=== PATIENT | female | born 1960 | race Caucasian/White ===

== ENCOUNTER 2017-02-08 01:39 | Observation (INO) | payer OTHER ==
[~2017-02-08] VITALS: Ht 162.6 cm; Wt 96.3 kg
[2017-02-08 02:10] LABS: BASO % 0.6 %; BASO ABS # 0.02 K/uL (0-0.2); COMPLETE YES; EOS % 3.9 %; HEMATOCRIT 30.4 % (37-47); IG% 0.6 %; LYMPH % 21.3 %; LYMPH ABS # 0.77 K/uL (1.2-3.4); MEAN CELL VOLUME 87.9 fL (80-100); MEAN CORPUSCULAR HEMOGLOBIN 29.8 pg (25-34); MEAN CORPUSCULAR HGB CONC 33.9 g/dl (32-36); MEAN PLATELET VOLUME 9.6 fL (7.4-10.4); MONO % 9.1 %; NEUT % 64.5 %; PLATELET COUNT 235 K/uL (130-400); RED BLOOD COUNT 3.46 M/uL (4.2-5.4); WHITE BLOOD COUNT 3.62 K/uL (4.8-10.8)
[2017-02-08 02:18] LABS: PROTHROMBIN TIME (PATIENT) 10.8 SECONDS (9.0-12.0)
--- NOTE | 2017-02-08 02:19 | EMERGENCY ROOM VISIT NOTE ---
History Report prepared by Agatha: [place] Under the Supervision of: Dr. Marely Castellanos D.O. First contact with patient: 01:42 Chief Complaint: CARDIAC ASSESSMENT Stated Complaint: CARDIAC SYMPTOMS History of Present Illness The patient is a 56 year old female who presents to the Emergency Room via EMS with complaints of persistent heart racing that started today. The patient was having some indigestion earlier in the day and started noticing her heart was racing. She has history of a pacemaker and atrial fibrillation. Seven hours ago , the patient noted that her heart rate was high so she took a Cardizem which helped relieve her symptoms. The patient states that she could feel that she was in a-fib. Over an hour ago, the patient felt her heart racing significantly again and her heart rate was above 100. She also complains of a tightness in her left shoulder and discomfort that radiated down to her left elbow. The patient called EMS and on her way to the ED she went back into sinus rhythm after being a-fib. The patient also notes that her feet had been swelling earlier in the day. She states that she has been taking her medications regularly. She was recently discharged from [facility] for a GI bleed 5 days ago. She denies chest pain or discomfort with her episodes today. Source of History: patient, EMS Onset: today Position: chest Timing: other (persistent) Associated Symptoms: No chest pain Note: Other associated symptoms: indigestion, elevated heart rate, left arm pain, feet swelling Review of Systems See HPI for pertinent positives & negatives. A total of 10 systems reviewed and were otherwise negative. Past Medical & Surgical Medical Problems: (1) Bleeding (2) Cervical cancer (3) Gallbladder problem (4) Heart disease (5) Hypertension (6) ICD (implantable cardioverter-defibrillator) in place Family History FH: cancer FH: gallbladder disease FH: hypertension Heart disease Social History Drug Use: none Housing Status: lives with family Occupation Status: employed Current/Historical Medications Scheduled Digoxin (Digoxin), 0.125 MG PO DAILY Diltiazem Hcl Ext Rel (Tiazac), 180 MG PO BID Sotalol Hcl (Betapace), 120 MG PO BID Scheduled PRN Diltiazem Hcl (Cardizem), 60 MG PO PRN PRN for TACHYCARDIA Oxycodone Ir (Roxicodone Ir), 5 MG PO Q6H PRN for Pain Trimethobenzamide Hcl (Tigan), 300 MG PO Q6H PRN for Nausea Allergies Coded Allergies: Valacyclovir (Verified Allergy, Intermediate, severe rash, 02/08/17) Uncoded Allergies: ASCORBIC ACID (Allergy, Intermediate, HIVES, 02/08/17) STRAWBERRIES,TOMATOES (Allergy, Intermediate, HIVES, 02/08/17) Physical Exam Vital Signs Date Time Temp Pulse Resp B/P Pulse Ox O2 Delivery O2 Flow Rate FiO2 02/08/17 06:08 60 02/08/17 04:39 68 16 132/74 94 Room Air 02/08/17 03:14 61 18 131/76 97 Room Air 02/08/17 02:31 62 20 116/67 96 Room Air 02/08/17 02:00 64 02/08/17 01:52 36.9 70 20 134/77 96 Room Air Physical Exam HEENT: Head - normocephalic and atraumatic Pupils are equal, round, and reactive to light. Extraocular eye muscles are intact, and sclera are anicteric. Nose - moist nasal mucosa without discharge. Mouth - moist buccal mucosa. Oropharynx is nonerythematous and there is no tonsillar exudate or edema noted. Neck: Supple; no JVD, nuchal rigidity, cervical lymphadenopathy. Heart: Regular rate and rhythm. There is a normal S1 and S2 with no murmurs, clicks, or gallops appreciated. Lungs: Clear to auscultation bilaterally with no wheezes, rales, or rhonchi. Abdomen: Soft, completely nontender, nondistended, with good bowel sounds. There are no palpable pulsatile masses or hepatosplenomegaly. There is no guarding, rigidity, or rebound noted. Extremities: 1+ edema in ankles. There are easily palpable peripheral pulses. Skin: warm and dry with good turgor and no rashes. Medical Decision & Procedures ER Provider Diagnostic Interpretation: Chest X-ray interpreted by me: Pacemaker in place, borderline cardiomegaly, no obvious pulmonary pathology. Laboratory Results 02/08/17 01:05 Red Blood Count 3.46, Mean Corpuscular Volume 87.9, Mean Corpuscular Hemoglobin 29.8, Mean Corpuscular Hemoglobin Concent 33.9, Mean Platelet Volume 9.6, Neutrophils (%) (Auto) 64.5, Lymphocytes (%) (Auto) 21.3, Monocytes (%) (Auto) 9.1, Eosinophils (%) (Auto) 3.9, Basophils (%) (Auto) 0.6, Neutrophils # (Auto) 2.34, Lymphocytes # (Auto) 0.77, Monocytes # (Auto) 0.33, Eosinophils # (Auto) 0.14, Basophils # (Auto) 0.02 02/08/17 01:05 Test 02/08/17 01:05 White Blood Count 3.62 K/uL (4.8-10.8) Red Blood Count 3.46 M/uL (4.2-5.4) Hemoglobin 10.3 g/dL (12.0-16.0) Hematocrit 30.4 % (37-47) Mean Corpuscular Volume 87.9 fL (80-100) Mean Corpuscular Hemoglobin 29.8 pg (25-34) Mean Corpuscular Hemoglobin Concent 33.9 g/dl (32-36) Platelet Count 235 K/uL (130-400) Mean Platelet Volume 9.6 fL (7.4-10.4) Neutrophils (%) (Auto) 64.5 % Lymphocytes (%) (Auto) 21.3 % Monocytes (%) (Auto) 9.1 % Eosinophils (%) (Auto) 3.9 % Basophils (%) (Auto) 0.6 % Neutrophils # (Auto) 2.34 K/uL (1.4-6.5) Lymphocytes # (Auto) 0.77 K/uL (1.2-3.4) Monocytes # (Auto) 0.33 K/uL (0.11-0.59) Eosinophils # (Auto) 0.14 K/uL (0-0.5) Basophils # (Auto) 0.02 K/uL (0-0.2) RDW Standard Deviation 44.6 fL (36.4-46.3) RDW Coefficient of Variation 16.3 % (11.5-14.5) Immature Granulocyte % (Auto) 0.6 % Immature Granulocyte # (Auto) 0.02 K/uL (0.00-0.02) Prothrombin Time 10.8 SECONDS (9.0-12.0) Prothromb Time International Ratio 1.0 (0.9-1.1) Activated Partial Thromboplast Time 25.5 SECONDS (21.0-31.0) Partial Thromboplastin Ratio 1.0 Anion Gap 10.0 mmol/L (3-11) Estimated GFR () 114.5 Estimated GFR (Non- 98.8 BUN/Creatinine Ratio 15.5 (10-20) Calcium Level 8.7 mg/dl (8.5-10.1) Total Creatine Kinase 70 U/L (26-192) Creatine Kinase MB 1.0 ng/ml (0.5-3.6) Creatine Kinase MB Ratio 1.4 (0-3.0) Troponin I 0.088 ng/ml (0-0.045) Pro-B-Type Natriuretic Peptide 585 pg/ml (0-900) Thyroid Stimulating Hormone (TSH) 1.550 uIu/ml (0.300-4.500) Laboratory results per my review. ECG Indication: tachycardia Rate (beats per minute): 68 Rhythm: normal sinus Findings: no acute ischemic change, no ectopy ED Course 0150: Past medical records reviewed. The patient was evaluated in room A10. A complete history and physical exam was performed. A twelve-lead EKG was obtained as described above. The patient had a chest x-ray as described above. Laboratory studies were drawn as above. 0230: At this time, I reevaluated the patient and she was resting. We were able to obtain the discharge summary from [facility]. 0308: At this time, I discussed the patient's case with Dr. Munoz - Hospitalist Karan and he agreed to accept the patient for further evaluation. Medical Decision The patient is a 56 year old female who presents to the ED with atrial fibrillation. Differential diagnosis includes a-fib with rvr, CHF, cardiac ischemia, electrolyte abnormality or thyroid dysfunction. Labs reviewed by me: white count 3.6, hemoglobin 10.3, normal renal function, normal TSH, glucose 130, BNP 585, troponin 0.088, coags normal. The patient noted some heart racing earlier in the day. She took some extra diltiazem. EMS found the patient was in A. fib with RVR. Her blood pressure was stable and she had no shortness of breath or chest discomfort. The A. fib broke in ambulance on the way here to the emergency department. However, the patient has an elevated troponin. I reviewed the results of the labs with the patient. I will not start her on blood thinners as she had a recent admission to [facility] for GI bleeding. Consults Time Called: [phone] Consulting Physician: Dr. Munoz - Hospitalist Karan Returned Call: [phone] At this time, I discussed the patient's case with Dr. Munoz and he agreed to accept the patient for further evaluation. Impression Primary Impression: Atrial fibrillation with rapid ventricular response Additional Impression: Elevated troponin Scribe Attestation The scribe's documentation has been prepared under my direction and personally reviewed by me in its entirety. I confirm that the note above accurately reflects all work, treatment, procedures, and medical decision making performed by me. Departure Information Dispostion Being Evaluated By Hospitalist Referrals No Doctor, Assigned (PCP) Problem Qualifiers
[2017-02-08] MEDS ORDERED: DILT-113 PO (02:28)
[2017-02-08] MEDS ORDERED: SOTA120T16 PO (02:28)
[2017-02-08] MEDS ORDERED: LNX125 PO (02:30)
[2017-02-08] MEDS ORDERED: OXYC1TAB3 PO (02:30)
[2017-02-08 02:33] LABS: BLOOD UREA NITROGEN 10 mg/dl (7-18); BUN/CREATININE RATIO 15.5 (10-20); CALCIUM 8.7 mg/dl (8.5-10.1); CARBON DIOXIDE 29 mmol/L (21-32); CHLORIDE 101 mmol/L (98-107); CREATININE 0.66 mg/dl (0.60-1.20); GLUCOSE 130 mg/dl (70-99); POTASSIUM 3.4 mmol/L (3.5-5.1); SODIUM 140 mmol/L (136-145)
[2017-02-08] MEDS ORDERED: DILT40TA PO (02:33)
[2017-02-08] MEDS ORDERED: TRIM300C14 PO (02:35)
[2017-02-08 02:49] LABS: CKMB/CK RATIO 1.4 (0-3.0)
[2017-02-08] MEDS ORDERED: POTASSIUM CHLORIDE 10 MEQ TABCR PO STA (06:16)
[2017-02-08] MEDS ORDERED: IV FLUIDS COMPLETED PRN (06:30)
[2017-02-08] MEDS ORDERED: OXYCODONE HCL IR 5 MG TAB (IMMEDIATE RELEASE) PO PRN (06:30)
[2017-02-08] MEDS ORDERED: TRIMETHOBENZAMIDE HCL 300 MG PO PRN (06:30)
[2017-02-08] MEDS ORDERED: ACETAMINOPHEN 325 MG TAB PO PRN (06:30)
--- NOTE | 2017-02-08 06:38 | History and Physical ---
History & Physical Date & Time of Service: February 08, 2017 at 06:23 Chief Complaint: Cardiac Symptoms Primary Care Physician: No Doctor, Assigned History of Present Illness Source: patient, hospital records 56 year old female, visiting from [facility], with history of hypertrophic cardiomyopathy, s/p Cardiac Arrest, s/p Pacemaker Placement, Atrial Fibrillation off coumadin, SVT, Severe Mitral Regurgitation, HTN, Lower GI bleeding, Cervical CA on chemo presenting with palpitations. Follows with [facility] for Cardiology and Oncology. Patient was admitted earlier this month to [facility] for SVT. Apparently, Sotalol was added to her medication regimen. A few days later, she was readmitted for rectal bleeding. Colonoscopy showed "an ulcer". She is currently visiting her daughter in the area. At around midnight, patient walked back to bed after going to the bathroom and developed palpitations. No chest pain, dizziness, nausea, diaphoresis. She then took her PRN Cardizem which did not relieve her symptoms. EMS was then summoned. Upon arrival to the ER, patient was already in normal sinus rhythm HR 68. On my exam, she is resting in bed, comfortable. Denies active chest pain, palpitations, dyspnea, dizziness. She reports lower leg swelling but no tenderness. No other symptoms Past Medical/Surgical History Medical Problems: (1) Bleeding Status: Chronic (2) Cervical cancer Status: Resolved (3) Gallbladder problem Status: Chronic (4) Heart disease Status: Chronic (5) Hypertension Status: Chronic (6) ICD (implantable cardioverter-defibrillator) in place Status: Chronic Family History FH: cancer FH: gallbladder disease FH: hypertension Heart disease Social History Smoking Status: Former Smoker Smokeless Tobacco Use: No Alcohol Use: none Drug Use: none Marital Status: Housing status: lives with family Occupational Status: employed Allergies Coded Allergies: Valacyclovir (Verified Allergy, Intermediate, severe rash, 02/08/17) Uncoded Allergies: ASCORBIC ACID (Allergy, Intermediate, HIVES, 02/08/17) STRAWBERRIES,TOMATOES (Allergy, Intermediate, HIVES, 02/08/17) Home Medications Scheduled Digoxin (Digoxin), 0.125 MG PO DAILY Diltiazem Hcl Ext Rel (Tiazac), 180 MG PO BID Sotalol Hcl (Betapace), 120 MG PO BID Scheduled PRN Diltiazem Hcl (Cardizem), 60 MG PO PRN PRN for TACHYCARDIA Oxycodone Ir (Roxicodone Ir), 5 MG PO Q6H PRN for Pain Trimethobenzamide Hcl (Tigan), 300 MG PO Q6H PRN for Nausea Review of Systems Constitutional- no fever; no weight loss Eyes- no acute visual changes ENT- no sinus drainage; no pharyngitis Pulmonary- no cough, no wheezing, no shortness of breath Cardiac- (+) as noted above GI- no nausea, no vomiting, no diarrhea, no melena, no hematochezia - no dysuria, no hematuria Musculoskeletal- no arthralgias, no myalgias Derm- no rashes, no new skin lesions, no changing skin lesions Hematologic- no unusual bruising, no unusual bleeding Lymphatics- no adenopathy Endocrine- no polyuria or polydipsia; no heat or cold intolerance Neuro- no headaches, no focal neurologic symptoms Psych- no anxiety, no depression Physical Exam Vital Signs Date Time Temp Pulse Resp B/P Pulse Ox O2 Delivery O2 Flow Rate FiO2 02/08/17 06:08 60 02/08/17 04:39 68 16 132/74 94 Room Air 02/08/17 03:14 61 18 131/76 97 Room Air 02/08/17 02:31 62 20 116/67 96 Room Air 02/08/17 02:00 64 02/08/17 01:52 36.9 70 20 134/77 96 Room Air General Appearance: WD/WN, no apparent distress Head: normocephalic, atraumatic Eyes: normal inspection, PERRL, EOMI ENT: normal ENT inspection, hearing grossly normal, pharynx normal Neck: supple, no adenopathy, thyroid normal, no JVD, trachea midline Respiratory/Chest: chest non-tender, lungs clear, normal breath sounds, no respiratory distress, no accessory muscle use Cardiovascular: regular rate, rhythm, no JVD, + systolic murmur (grade 3/6 apex ) Abdomen/GI: normal bowel sounds, non tender, soft, no organomegaly Back: normal inspection, no CVA tenderness Extremities/Musculoskelatal: no calf tenderness, normal range of motion, + pertinent finding (trace lower leg edema) 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, no motor/sensory deficits, alert, normal mood/affect, oriented x 3 Skin: normal color, warm/dry, no rash Lymphatic: no adenopathy Diagnostics Laboratory Results Results Past 24 Hours Test 02/08/17 01:05 02/08/17 06:16 Range/Units White Blood Count 3.62 4.8-10.8 K/uL Red Blood Count 3.46 4.2-5.4 M/uL Hemoglobin 10.3 12.0-16.0 g/dL Hematocrit 30.4 37-47 % Mean Corpuscular Volume 87.9 80-100 fL Mean Corpuscular Hemoglobin 29.8 25-34 pg Mean Corpuscular Hemoglobin Concent 33.9 32-36 g/dl Platelet Count 235 130-400 K/uL Mean Platelet Volume 9.6 7.4-10.4 fL Neutrophils (%) (Auto) 64.5 % Lymphocytes (%) (Auto) 21.3 % Monocytes (%) (Auto) 9.1 % Eosinophils (%) (Auto) 3.9 % Basophils (%) (Auto) 0.6 % Neutrophils # (Auto) 2.34 1.4-6.5 K/uL Lymphocytes # (Auto) 0.77 1.2-3.4 K/uL Monocytes # (Auto) 0.33 0.11-0.59 K/uL Eosinophils # (Auto) 0.14 0-0.5 K/uL Basophils # (Auto) 0.02 0-0.2 K/uL RDW Standard Deviation 44.6 36.4-46.3 fL RDW Coefficient of Variation 16.3 11.5-14.5 % Immature Granulocyte % (Auto) 0.6 % Immature Granulocyte # (Auto) 0.02 0.00-0.02 K/uL Prothrombin Time 10.8 9.0-12.0 SECONDS Prothromb Time International Ratio 1.0 0.9-1.1 Activated Partial Thromboplast Time 25.5 21.0-31.0 SECONDS Partial Thromboplastin Ratio 1.0 Sodium Level 140 136-145 mmol/L Potassium Level 3.4 3.5-5.1 mmol/L Chloride Level 101 98-107 mmol/L Carbon Dioxide Level 29 21-32 mmol/L Anion Gap 10.0 3-11 mmol/L Blood Urea Nitrogen 10 7-18 mg/dl Creatinine 0.66 0.60-1.20 mg/dl Estimated GFR () 114.5 Estimated GFR (Non- 98.8 BUN/Creatinine Ratio 15.5 10-20 Random Glucose 130 70-99 mg/dl Calcium Level 8.7 8.5-10.1 mg/dl Total Creatine Kinase 70 26-192 U/L Creatine Kinase MB 1.0 0.5-3.6 ng/ml Creatine Kinase MB Ratio 1.4 0-3.0 Troponin I 0.088 0-0.045 ng/ml Pro-B-Type Natriuretic Peptide 585 0-900 pg/ml Thyroid Stimulating Hormone (TSH) 1.550 0.300-4.500 uIu/ml Diagnostic Radiology cxr no infiltrates, no effusion, no congestion EKG HR 68, sinus rhythm, no signs of ischemia or infarct Impression Assessment and Plan 56 year old female, visiting from [facility], with history of hypertrophic cardiomyopathy, s/p Cardiac Arrest, s/p Pacemaker Placement, Atrial Fibrillation off coumadin, SVT, Severe Mitral Regurgitation, HTN, Lower GI bleeding, Cervical CA on chemo presenting with palpitations. PALPITATIONS HISTORY OF SVT, ATRIAL FIBRILLATION - was recently admitted to [facility] for SVT Sotalol added, will obtain records from [facility] - replace potassium - check echo, pacemaker interrogation cardiac markers - continue Sotalol 120mg BID, Digoxin 125mcg daily, Diltiazem 180mg BID - consult Escape Wheel Tooth Cutter HYPOKALEMIA replace with PO check Mg repeat K at 11am HISTORY OF HYPERTROPHIC CARDIOMYOPATHY S/P PACEMAKER PLACEMENT - (+) mild lower leg edema - check echo RECENT GI BLEED no recurrence per patient recent Colonoscopy revealed :an ulcer" will obtain records from recent admission at [facility] ongoing Chemo at [facility] DVT PROPHYLAXIS no anticoagulation due to recent GI bleed check Leg Doppler US before starting SCDs Full code per patient Disposition pending anticipate d/c home when medically stable ff up at [facility] for Cardiology and Oncology VTE Prophylaxis VTE Risk Assessment Done? Y/N: Yes Risk Level: Moderate
[2017-02-08 06:57] VITALS: BP 133/87; PULSE 63; TEMP 36.7; O2SAT 97; Ht 162.6 cm; Wt 96.3 kg
[2017-02-08 07:30] VITALS: BP 133/72; PULSE 66; TEMP 36.9; O2SAT 97
[2017-02-08 07:50] LABS: CKMB/CK RATIO 2.2 (0-3.0)
[2017-02-08] MEDS ORDERED: SOTALOL HCL 80 MG TAB PO SCH (09:00)
[2017-02-08] MEDS ORDERED: DILTIAZEM HCL (TIAzac) 180 MG CAPCR PO SCH (09:00)
--- NOTE | 2017-02-08 09:54 | DIAGNOSTIC IMAGING REPORT ---
CHEST ONE VIEW PORTABLE CLINICAL HISTORY: Atrial fibrillation. COMPARISON STUDY: No previous studies for comparison. FINDINGS: Lung volumes are normal. A left subclavian pacer/AICD is in place. There is moderate cardiomegaly without evidence of pulmonary edema. There is mild elevation of the left hemidiaphragm. There is no consolidation. IMPRESSION: 1. No acute cardiopulmonary findings. 2. Mild cardiomegaly without evidence of pulmonary edema. Electronically signed by: Curt Trevino M.D. 02/08/2017 9:53 AM Dictated Date/Time: 02/08/2017 9:52 AM
[2017-02-08 11:00] LABS: URINE APPEARANCE CLEAR (CLEAR); URINE BILIRUBIN NEG (NEG); URINE COLOR YELLOW; URINE NITRITE NEG (NEG); URINE PH 7.5 (4.5-7.5); URINE SPECIFIC GRAVITY 1.005 (1.000-1.030); UROBILINOGEN NEG (NEG)
[2017-02-08 11:05] LABS: MANUAL MICROSCOPIC REQUIRED? NO; REVIEW REQ? NO
[2017-02-08] MEDS: MAGNESIUM SULFATE 1GM / D5W 1 GM in PREMIXED IN D5W 100 ML IV SCH ×2 (11:11→12:10)
[2017-02-08 11:30] VITALS: BP 117/58; PULSE 60; TEMP 36.9; O2SAT 97
--- NOTE | 2017-02-08 11:55 | ECHOCARDIOGRAM REPORT ---
*NOTICE TO RECEIVING REPUBLICAN AGENCY This information is strictly Confidential and protected under [place] law. [place] law prohibits you from making any further disclosure of this information unless further disclosure is expressly permitted by the written consent of the person to whom it pertains or is authorized by law. A general authorization for the release of medical or other information is not sufficient for this purpose. Hospital accepts no responsibility if the information is made available to any other person, INCLUDING THE PATIENT. Interpretation Summary * Name: ZARIA OLSON Study Date: 02/08/2017 08:49 AM BP: 133/87 mmHg * Patient Location: [facility] HR: 69 * : 1960 (M/d/yyyy) Gender: Female Height: 64 in * Age: 56 yrs Ethnicity: CA Weight: 218 lb * Ordering Physician: Marco Munoz * Referring Physician: Dylan Ross * Performed By: Santhosh Jones RDCS * * Reason For Study: Palpitations * BSA: 2.0 m2 * -- Conclusions -- * The left ventricle is normal in size. * There is severe asymmetric left ventricular hypertrophy. * The echo findings are consistent with left ventricular outflow obstruction. * The left ventricular wall motion is normal. * Left ventricular systolic function is normal. * Ejection Fraction = 65-70%. * Diastolic dysfunction, Grade II (pseudonormalization pattern). * There is focal calification of the posterior mitral valve annulus * There is systolic anterior motion of the chordal apparatus. * There is moderate mitral valve prolapse. * There is mild to moderate mitral regurgitation. * The mitral regurgitant jet is eccentrically directed. * The left atrium is moderately dilated. Procedure Details * A complete two-dimensional transthoracic echocardiogram was performed (2D, M-mode, Doppler and color flow Doppler). * The study was technically adequate. Left Ventricle * The left ventricle is normal in size. * There is severe asymmetric left ventricular hypertrophy. * The echo findings are consistent with left ventricular outflow obstruction. * Left ventricular systolic function is normal. * Ejection Fraction = 65-70%. * The left ventricular wall motion is normal. Right Ventricle * The right ventricle is normal in size and function. * There is a pacemaker lead in the right ventricle. Atria * The left atrium is moderately dilated. * Right atrial size is normal. * No ASD detected; PFO is not assessed. Mitral Valve * There is systolic anterior motion of the chordal apparatus. * There is focal calification of the posterior mitral valve annulus * There is moderate mitral valve prolapse. * There is no mitral valve stenosis. * There is mild to moderate mitral regurgitation. * The mitral regurgitant jet is eccentrically directed. Tricuspid Valve * The tricuspid valve anatomy is normal. * There is no tricuspid stenosis. * There is trace tricuspid regurgitation. * Doppler findings do not suggest pulmonary hypertension. Aortic Valve * The aortic valve is trileaflet. * No hemodynamically significant valvular aortic stenosis. * No aortic regurgitation is present. Pulmonic Valve * The pulmonic valve is not well visualized. Great Vessels * The aortic root is normal size. Pericardium/Pleural * There is no pericardial effusion. Great Vessels * Normal inferior vena cava diameter and respiratory variation suggests normal central venous pressure. Left Ventricular Diastolic Function * Diastolic dysfunction, Grade II (pseudonormalization pattern). MMode 2D Measurements and Calculations IVSd 1.8 cm IVSs 2.4 cm LVIDd 4.4 cm LVIDs 2.2 cm LVPWd 1.5 cm LVPWs 2.3 cm IVS/LVPW 1.2 FS 51.4 % EDV(Teich) 89.0 ml ESV(Teich) 15.4 ml EF(Teich) 82.8 % EDV(cubed) 86.9 ml ESV(cubed) 10.0 ml EF(cubed) 88.5 % % IVS thick 33.6 % % LVPW thick 54.7 % LV mass(C)d 303.8 grams LV mass(C)dI 149.7 grams/m\S\2 LV mass(C)s 253.2 grams LV mass(C)sI 124.8 grams/m\S\2 SV(Teich) 73.7 ml SI(Teich) 36.3 ml/m\S\2 SV(cubed) 76.9 ml SI(cubed) 37.9 ml/m\S\2 EPSS 0.31 cm Ao root diam 3.3 cm Ao root area 8.6 cm\S\2 ACS 1.9 cm LA dimension 5.1 cm asc Aorta Diam 3.8 cm LA/Ao 1.5 LVOT diam 2.1 cm LVOT area 3.5 cm\S\2 LVAd ap4 34.5 cm\S\2 LVLd ap4 9.1 cm EDV(MOD-sp4) 108.0 ml LVAs ap4 14.8 cm\S\2 LVLs ap4 7.4 cm ESV(MOD-sp4) 25.0 ml EF(MOD-sp4) 76.9 % LVAd ap2 32.5 cm\S\2 LVLd ap2 9.0 cm EDV(MOD-sp2) 103.0 ml LVAs ap2 14.3 cm\S\2 LVLs ap2 7.2 cm ESV(MOD-sp2) 27.0 ml EF(MOD-sp2) 73.8 % SV(MOD-sp4) 83.0 ml SI(MOD-sp4) 40.9 ml/m\S\2 SV(MOD-sp2) 76.0 ml SI(MOD-sp2) 37.5 ml/m\S\2 Doppler Measurements and Calculations MV E max jenifer 125.5 cm/sec MV A max jenifer 92.6 cm/sec MV E/A 1.4 MV dec time 0.27 sec Ao V2 max 271.5 cm/sec Ao max PG 29.5 mmHg Ao max PG (full) 22.5 mmHg AMY(V,A) 1.7 cm\S\2 AMY(V,D) 1.7 cm\S\2 LV V1 max PG 7.0 mmHg LV V1 max 131.9 cm/sec MR max jenifer 686.0 cm/sec MR max PG 188.2 mmHg MR mean jenifer 422.0 cm/sec MR mean PG 89.0 mmHg MR VTI 190.0 cm PA V2 max 115.4 cm/sec PA max PG 5.3 mmHg PI end-d jenifer 124.1 cm/sec TR max jenifer 257.2 cm/sec
[2017-02-08] MEDS ORDERED: MCRK20 PO (13:14)
[2017-02-08] MEDS ORDERED: MGNO400 PO (13:14)
--- NOTE | 2017-02-08 13:17 | Discharge Instructions ---
Discharge Instructions Date of Service February 08, 2017. Admission Reason for Admission: Atrial Fibrillation With Rapid Ventricular Respons Discharge Discharge Diagnosis / Problem: palpitations, a fib with rvr Discharge Goals Goal(s): Decrease discomfort, Improve function Activity Recommendations Activity Limitations: resume your previous activity . Instructions / Follow-Up Instructions / Follow-Up FOLLOWUP WITH FAMILY DOCTOR IN ONE WEEK FOLLOWUP WITH CARDIOLOGY IN 1-2 WEEKS ADVICE TO RESTART COUMADIN. TO DISCUSS WITH CARDIOLOGY RISK OF STROKE IS HIGH. LAB: BMP WITH MG LEVELS IN 5-7 DAYS AND FOLLOW RESULTS WITH FAMILY DOCTOR. NEW MEDICATIONS: MAGNESIUM OXIDE 400MG PO ONCE DAILY POTASSIUM SUPPLEMENT 20MEQ PO ONCE DAILY. STOPPED MEDICATION: DIGOXIN. Current Hospital Diet Patient's current hospital diet: AHA Diet (Heart Healthy) Discharge Diet Recommended Diet: AHA Diet (Heart Healthy) Pending Studies Studies pending at discharge: no Medical Emergencies . Who to Call and When: Medical Emergencies: If at any time you feel your situation is an emergency, please call 911 immediately. . Non-Emergent Contact Non-Emergency issues call your: Primary Care Provider . . "Provider Documentation" section prepared by Jovi Grimaldo. . VTE Core Measure Inpt VTE Proph given/why not?: SCD's
[2017-02-08 13:40] VITALS: BP 117/58; PULSE 60; TEMP 36.9; O2SAT 97
[2017-02-08] MEDS ORDERED: DIGOXIN 0.125 MG TAB PO SCH (16:00)
--- NOTE | 2017-02-08 18:18 | Progress Note ---
Internal Med Progress Note Date of Service: February 08, 2017. Provider Documentation: SUBJECTIVE: resting comfortably no more palpitations no chest pain or sob afebrile no complaints OBJECTIVE: Vital Signs-as noted below Exam: General-alert and awake and oriented x 3. ENT-Normal hearing Neck-no neck masses Lungs-cta b/l no wheezing or crackles Heart-s1 and s2 heard regular rate and rhythm no murmurs Abdomen-soft bowel sounds present non tender no distension Extremities- no present no erythema Neuro-alert and awake oriented moves extremities Lab data as noted below. ASSESSMENT & PLAN: 56 year old female, visiting from [facility], with history of hypertrophic cardiomyopathy, s/p Cardiac Arrest, s/p Pacemaker Placement, Atrial Fibrillation off Coumadin, SVT, Severe Mitral Regurgitation, HTN, Lower GI bleeding, Cervical CA on chemo presenting with palpitations. PALPITATIONS HISTORY OF SVT, ATRIAL FIBRILLATION was recently admitted to [facility] for SVT Sotalol was added, hypokalemia and hypomagnesium-replaced. s/p pacemaker interrogation s/p echo seen by cardiology and recommends potassium and magnesium supplements and stopping digoxin and recommends to restart on coumadin which patinet is not agreabale but was ok to d/w with her wharf tender helper. HYPOKALEMIA and Hypomagnesemia replaced HISTORY OF HYPERTROPHIC CARDIOMYOPATHY S/P PACEMAKER PLACEMENT - (+) mild lower leg edema seen by cardiology RECENT GI BLEED no recurrence per patient recent Colonoscopy revealed :an ulcer" followup with pcp CERVICAL CANCER ongoing Chemo at [place] discharged home Vital Signs: Date Time Temp Pulse Resp B/P Pulse Ox O2 Delivery O2 Flow Rate FiO2 02/08/17 13:40 36.9 60 14 97 02/08/17 11:30 36.9 60 14 117/58 97 Room Air 02/08/17 11:30 Room Air 02/08/17 07:30 Room Air 02/08/17 07:30 36.9 66 18 133/72 97 Room Air 02/08/17 06:57 36.7 63 14 133/87 97 02/08/17 06:38 58 16 115/62 96 02/08/17 06:08 60 02/08/17 04:39 68 16 132/74 94 Room Air 02/08/17 03:14 61 18 131/76 97 Room Air 02/08/17 02:31 62 20 116/67 96 Room Air 02/08/17 02:00 64 02/08/17 01:52 36.9 70 20 134/77 96 Room Air Lab Results: Results Past 24 Hours Test 02/08/17 01:05 02/08/17 01:45 02/08/17 06:56 02/08/17 10:40 Range/Units White Blood Count 3.62 4.8-10.8 K/uL Red Blood Count 3.46 4.2-5.4 M/uL Hemoglobin 10.3 12.0-16.0 g/dL Hematocrit 30.4 37-47 % Mean Corpuscular Volume 87.9 80-100 fL Mean Corpuscular Hemoglobin 29.8 25-34 pg Mean Corpuscular Hemoglobin Concent 33.9 32-36 g/dl Platelet Count 235 130-400 K/uL Mean Platelet Volume 9.6 7.4-10.4 fL Neutrophils (%) (Auto) 64.5 % Lymphocytes (%) (Auto) 21.3 % Monocytes (%) (Auto) 9.1 % Eosinophils (%) (Auto) 3.9 % Basophils (%) (Auto) 0.6 % Neutrophils # (Auto) 2.34 1.4-6.5 K/uL Lymphocytes # (Auto) 0.77 1.2-3.4 K/uL Monocytes # (Auto) 0.33 0.11-0.59 K/uL Eosinophils # (Auto) 0.14 0-0.5 K/uL Basophils # (Auto) 0.02 0-0.2 K/uL RDW Standard Deviation 44.6 36.4-46.3 fL RDW Coefficient of Variation 16.3 11.5-14.5 % Immature Granulocyte % (Auto) 0.6 % Immature Granulocyte # (Auto) 0.02 0.00-0.02 K/uL Prothrombin Time 10.8 9.0-12.0 SECONDS Prothromb Time International Ratio 1.0 0.9-1.1 Activated Partial Thromboplast Time 25.5 21.0-31.0 SECONDS Partial Thromboplastin Ratio 1.0 Sodium Level 140 136-145 mmol/L Potassium Level 3.4 3.6 3.5-5.1 mmol/L Chloride Level 101 98-107 mmol/L Carbon Dioxide Level 29 21-32 mmol/L Anion Gap 10.0 3-11 mmol/L Blood Urea Nitrogen 10 7-18 mg/dl Creatinine 0.66 0.60-1.20 mg/dl Estimated GFR () 114.5 Estimated GFR (Non- 98.8 BUN/Creatinine Ratio 15.5 10-20 Random Glucose 130 70-99 mg/dl Calcium Level 8.7 8.5-10.1 mg/dl Magnesium Level 1.5 1.8-2.4 mg/dl Total Creatine Kinase 70 55 26-192 U/L Creatine Kinase MB 1.0 1.2 0.5-3.6 ng/ml Creatine Kinase MB Ratio 1.4 2.2 0-3.0 Troponin I 0.088 0.096 0-0.045 ng/ml Pro-B-Type Natriuretic Peptide 585 0-900 pg/ml Thyroid Stimulating Hormone (TSH) 1.550 0.300-4.500 uIu/ml Urine Color YELLOW Urine Appearance CLEAR CLEAR Urine pH 7.5 4.5-7.5 Urine Specific [place] 1.005 1.000-1.030 Urine Protein NEG NEG Urine Glucose (UA) NEG NEG Urine Ketones NEG NEG Urine Occult Blood TRACE NEG Urine Nitrite NEG NEG Urine Bilirubin NEG NEG Urine Urobilinogen NEG NEG Urine Leukocyte Esterase TRACE NEG Urine WBC (Auto) 0 0-5 /hpf Urine RBC (Auto) 0-4 0-4 /hpf Urine Hyaline Casts (Auto) 0 0-5 /lpf Urine Epithelial Cells (Auto) 5-10 0-5 /lpf Urine Bacteria (Auto) NEG NEG Test 02/08/17 13:18 Range/Units Total Creatine Kinase 26-192 U/L Creatine Kinase MB 1.2 0.5-3.6 ng/ml Creatine Kinase MB Ratio 0-3.0 Troponin I 0.095 0-0.045 ng/ml
--- NOTE | 2017-02-08 18:47 | Discharge Summary ---
Discharge Summary Date of Service February 08, 2017. Discharge Summary Admission Date: February 08, 2017 at 06:16 Discharge Date: February 08, 2017 Discharge Disposition: Home Principal Diagnosis: PALPITATIONS AFIB WITH RVR ELECTROLYTE ABNORMALITIES Secondary Diagnoses/Problems: (1) Bleeding Status: Chronic (2) Cervical cancer Status: Resolved (3) Gallbladder problem Status: Chronic (4) Heart disease Status: Chronic (5) Hypertension Status: Chronic (6) ICD (implantable cardioverter-defibrillator) in place Status: Chronic Procedures: ECHO: * The left ventricle is normal in size. * There is severe asymmetric left ventricular hypertrophy. * The echo findings are consistent with left ventricular outflow obstruction. * The left ventricular wall motion is normal. * Left ventricular systolic function is normal. * Ejection Fraction = 65-70%. * Diastolic dysfunction, Grade II (pseudonormalization pattern). * There is focal calification of the posterior mitral valve annulus * There is systolic anterior motion of the chordal apparatus. * There is moderate mitral valve prolapse. * There is mild to moderate mitral regurgitation. * The mitral regurgitant jet is eccentrically directed. * The left atrium is moderately dilated. Consultations: CARDIOLOGY Medication Reconciliation New Medications: Magnesium Oxide (Magnesium-Oxide) 400 Mg Tab 400 MG PO QAM for 30 Days, #30 TAB 2 Refills Potassium Chloride (Klor-Con M20) 20 Meq Tabcr 20 MEQ PO QAM for 30 Days, 2 Refills Continued Medications: Diltiazem Hcl (Cardizem) 60 Mg Tab 60 MG PO PRN PRN for TACHYCARDIA, TAB Diltiazem Hcl Ext Rel (Tiazac) 180 Mg Capcr 180 MG PO BID, CAP Oxycodone Ir (Roxicodone Ir) 5 Mg Tab 5 MG PO Q6H PRN for Pain, TAB Sotalol Hcl (Betapace) 120 Mg Tab 120 MG PO BID, TAB Trimethobenzamide Hcl (Tigan) 300 Mg Cap 300 MG PO Q6H PRN for Nausea Discontinued Medications: Digoxin (Digoxin) 0.125 Mg Tab 0.125 MG PO DAILY Admission Information HPI (per Admitting provider): 56 year old female, visiting from [facility], with history of hypertrophic cardiomyopathy, s/p Cardiac Arrest, s/p Pacemaker Placement, Atrial Fibrillation off coumadin, SVT, Severe Mitral Regurgitation, HTN, Lower GI bleeding, Cervical CA on chemo presenting with palpitations. Follows with [facility] for Cardiology and Oncology. Patient was admitted earlier this month to [facility] for SVT. Apparently, Sotalol was added to her medication regimen. A few days later, she was readmitted for rectal bleeding. Colonoscopy showed "an ulcer". She is currently visiting her daughter in the area. At around midnight, patient walked back to bed after going to the bathroom and developed palpitations. No chest pain, dizziness, nausea, diaphoresis. She then took her PRN Cardizem which did not relieve her symptoms. EMS was then summoned. Upon arrival to the ER, patient was already in normal sinus rhythm HR 68. On my exam, she is resting in bed, comfortable. Denies active chest pain, palpitations, dyspnea, dizziness. She reports lower leg swelling but no tenderness. No other symptoms Physical Exam (per Admitting): General Appearance: WD/WN, no apparent distress Head: normocephalic, atraumatic Eyes: normal inspection, PERRL, EOMI ENT: normal ENT inspection, hearing grossly normal, pharynx normal Neck: supple, no adenopathy, thyroid normal, no JVD, trachea midline Respiratory/Chest: chest non-tender, lungs clear, normal breath sounds, no respiratory distress, no accessory muscle use Cardiovascular: regular rate, rhythm, no JVD, + systolic murmur (grade 3/6 apex) Abdomen/GI: normal bowel sounds, non tender, soft, no organomegaly Back: normal inspection, no CVA tenderness Extremities/Musculoskelatal: no calf tenderness, normal range of motion, + pertinent finding (trace lower leg edema) Neurologic/Psych: 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 PALPITATIONS HISTORY OF SVT, ATRIAL FIBRILLATION was recently admitted to [facility] for SVT Sotalol was added, hypokalemia and hypomagnesium-replaced. s/p pacemaker interrogation s/p echo seen by cardiology and recommends potassium and magnesium supplements and stopping digoxin and recommends to restart on coumadin which patinet is not agreabale but was ok to d/w with her anodic operator. HYPOKALEMIA and Hypomagnesemia replaced HISTORY OF HYPERTROPHIC CARDIOMYOPATHY S/P PACEMAKER PLACEMENT - (+) mild lower leg edema seen by cardiology RECENT GI BLEED no recurrence per patient recent Colonoscopy revealed :an ulcer" followup with pcp CERVICAL CANCER ongoing Chemo at [place] discharged home Total time spent on discharge = 35MINUTES This includes examination of the patient, discharge planning, medication reconciliation, and communication with other providers. Discharge Instructions Please take this sheet to every appointment for the next month Discharge Instructions Date of Service February 08, 2017. Admission Reason for Admission: Atrial Fibrillation With Rapid Ventricular Respons Discharge Discharge Diagnosis / Problem: palpitations, a fib with rvr Discharge Goals Goal(s): Decrease discomfort, Improve function Activity Recommendations Activity Limitations: resume your previous activity . Instructions / Follow-Up Instructions / Follow-Up FOLLOWUP WITH FAMILY DOCTOR IN ONE WEEK FOLLOWUP WITH CARDIOLOGY IN 1-2 WEEKS ADVICE TO RESTART COUMADIN. TO DISCUSS WITH CARDIOLOGY RISK OF STROKE IS HIGH. LAB: BMP WITH MG LEVELS IN 5-7 DAYS AND FOLLOW RESULTS WITH FAMILY DOCTOR. NEW MEDICATIONS: MAGNESIUM OXIDE 400MG PO ONCE DAILY POTASSIUM SUPPLEMENT 20MEQ PO ONCE DAILY. STOPPED MEDICATION: DIGOXIN. Current Hospital Diet Patient's current hospital diet: AHA Diet (Heart Healthy) Discharge Diet Recommended Diet: AHA Diet (Heart Healthy) Pending Studies Studies pending at discharge: no Medical Emergencies . Who to Call and When: Medical Emergencies: If at any time you feel your situation is an emergency, please call 911 immediately. . Non-Emergent Contact Non-Emergency issues call your: Primary Care Provider . . "Provider Documentation" section prepared by Jovi Grimaldo. . VTE Core Measure Inpt VTE Proph given/why not?: SCD's
--- NOTE | 2017-02-08 20:15 | CARDIOLOGY CONSULTATION ---
DATE OF CONSULTATION: 02/08/2017 REFERRING PHYSICIAN: Marco Munoz MD INDICATIONS: Tachy-palpitations. HISTORY OF PRESENT ILLNESS: The patient is a complex 56-year-old female, followed by automobile mechanic motor, Dr. Ross at the [facility]. Her underlying history per her description is notable for hypertrophic obstructive cardiomyopathy with mitral insufficiency, history of paroxysmal atrial fibrillation with rapid ventricular response, history of recent difficulties with recurrent bleeding vaginal and rectal with discontinuation of anticoagulation, history of cervical carcinoma currently on chemotherapy with cisplatin and history of prior cardiac arrest 5 years past with a single chamber pacer defibrillator in place. The patient presents now having been visiting the [facility] to see family for a holiday weekend. She noted she had been hospitalized at [facility] earlier this month with recurrent supraventricular tachycardia. Last evening, the patient on arising to go to the bathroom, developed some sudden onset of tachy-palpitations which were persistent. She took an additional diltiazem dose, but symptoms remained present and she presented to the Emergency Room. She notes en route to the Emergency Room, she spontaneously converted from initial rhythm of atrial fibrillation with rapid ventricular response to sinus mechanism. She is referred now for further evaluation. She notes having had difficulties with longstanding paroxysmal atrial arrhythmias. She denies any current chest pains, dizziness, lightheadedness, syncope or near syncope. Notes no orthopnea or worsening peripheral edema above the medical history as defined. She has had difficulties with recurrent GI bleeding and vaginal bleeding which has resulted in discontinuation of taking medications faithfully. She notes no acute weight loss or gain. Appetite has been stable. She notes no fevers, chills or unexplained infections. She is following with cardiology and oncology closely. ALLERGIES: NOTED TO BE VITAMIN C, ASPIRIN, ENOXAPARIN, VALACYCLOVIR AND WITH RECENT INTOLERANCE OF WARFARIN. MEDICATIONS: Prior to hospitalization were; digoxin 0.125 mg per day, diltiazem 60 mg p.r.n. tachycardia, diltiazem extended release 180 mg twice per day, sotalol 120 mg twice per day and oxycodone p.r.n. pain. PAST SURGICAL HISTORY: Notable for prior tubal ligation, knee surgery and single chamber ICD implantation. FAMILY HISTORY: Notable for possible heart disease in father. SOCIAL HISTORY: The patient resides in [place], outside of [place]. She works for [employer]. She is a nonsmoker and nondrinker of significance. PHYSICAL EXAMINATION: GENERAL: The patient is a moderately obese age-appropriate female, in no acute distress. VITAL SIGNS: Heart rate is 60, blood pressure is 117/58 and O2 saturations are 97% on room air. HEENT: Normocephalic and atraumatic. NECK: Thick. There is no distinct jugular venous distention. LUNGS: Clear to auscultation. CARDIOVASCULAR: Regular, with a grade 2/6 systolic murmur at the right upper sternal border as well as at the apex. ABDOMEN: Soft, obese and nontender. There is no palpable hepatosplenomegaly. EXTREMITIES: Without cyanosis or clubbing. There is no edema. There is no cord or Homans sign. NEUROLOGIC: The patient is alert and answering questions appropriately. LABORATORY DATA: On presentation; sodium is 140, potassium is 3.4, chloride is 101, bicarbonate 29, BUN 10, creatinine is 0.66, magnesium level is 1.5, CK-MBs are normal. Troponins are mildly flat. TSH is 1.5. EKG reveals on presentation sinus rhythm with nonspecific ST segment changes, minimal voltage criteria for left ventricular hypertrophy. Echocardiogram preliminary review this morning demonstrates asymmetric left ventricular hypertrophy with basal septal thickening and left ventricular outflow tract obstruction at rest. Ejection fraction was 65-70%. There is grade 2 diastolic dysfunction. There is systolic anterior motion of the chordal apparatus with associated mitral valve prolapse and moderate mitral insufficiency with an eccentric directed jet. The left atrium is moderately dilated. Pacer defibrillator interrogation today reveals no ventricular arrhythmias. Noted no device activation. IMPRESSION: A 56-year-old female, with paroxysmal atrial fibrillation followed by cardiology through [facility] who is visiting family in the area and lapsed into atrial fibrillation last evening. Clinical course is notable for recent hospitalizations with recurrent gastrointestinal bleeding and is currently off anticoagulation and expects to remain so. Laboratory studies are notable for significant hypokalemia on presentation as well as hypomagnesemia. She is currently in sinus rhythm. Echocardiogram by review appears similar to those of prior evaluations prior to current admission. RECOMMENDATIONS: Would supplement potassium and magnesium. Have patient ambulate in the hallway. If stable, will be discharged to home with anticipation to follow primary automobile mechanic motor. We discussed the indications for anticoagulation with atrial fibrillation and hypertrophic cardiomyopathy. She will discuss with the primary automobile mechanic motor this, but notes will not resume. In addition would recommend discontinuing digoxin as part of her ongoing medical regimen with continued dosing of sotalol and diltiazem.
[2017-02-08] MEDS ORDERED: MAGNESIUM OXIDE 400 MG TAB PO SCH (21:00)
[2017-02-09] MEDS ORDERED: MAGNESIUM OXIDE 400 MG TAB PO SCH (09:00)
[2017-02-09] MEDS ORDERED: POTASSIUM CHLORIDE 20 MEQ TABCR PO SCH (09:00)
== END 2017-02-08 14:26 | disposition home or self-care (01) ==
LOC: ENRESERVTM → ENRESERVDT → C.EDA 01:42 → C.MSICU 06:16
PROVIDERS: ADMIT Internal Medicine; ATTEND Internal Medicine
DX: R00.2 Palpitations (principal); I42.1 Obstructive hypertrophic cardiomyopathy; I48.0 Paroxysmal atrial fibrillation; E66.9 Obesity, unspecified; E87.6 Hypokalemia; E83.42 Hypomagnesemia; I10 Essential (primary) hypertension; R79.89 Other specified abnormal findings of blood chemistry; I34.1 Nonrheumatic mitral (valve) prolapse; C53.9 Malignant neoplasm of cervix uteri, unspecified; I34.0 Nonrheumatic mitral (valve) insufficiency; Z87.891 Personal history of nicotine dependence; Z95.810 Presence of automatic (implantable) cardiac defibrillator; Z82.49 Family history of ischemic heart disease and other diseases of the circulatory system